=== PATIENT | female | born 1995 | race Hispanic/Latino ===

== ENCOUNTER 2020-04-06 06:00 | Inpatient (IN) | payer OTHER ==
[2020-04-06] MEDS ORDERED: Bupivacaine 0.25% HCL 30 ML VIAL ONE (11:24)
[2020-04-07] MEDS ORDERED: Diphenoxylate HCl/Atropine Tablet PO PRN (05:45)
[2020-04-07] MEDS ORDERED: Carboprost 250 MCG/ML AMP IM PRN (05:45)
[2020-04-07] MEDS ORDERED: NS / Oxytocin 40 units/1000ml 1,000 ML IV PRN (05:45)
[2020-04-07] MEDS ORDERED: HYDROcodone/Acetaminophen 5/325 mg Tablet PO PRN ×3 (05:45→15:06)
[2020-04-07] MEDS ORDERED: Lidocaine 1% (PF) 30 ML VIAL SC PRN (05:45)
[2020-04-07] MEDS ORDERED: Promethazine HCl 25 MG/ML VIAL IM PRN (05:45)
[2020-04-07] MEDS ORDERED: Methylergonovine 0.2 MG/ML VIAL IM PRN (05:45)
[2020-04-07] MEDS ORDERED: Misoprostol 200 MCG TAB PR PRN (05:45)
[2020-04-07] MEDS ORDERED: Butorphanol Tartrate 1 MG/ML VIAL SLOW IVP PRN (05:45)
[2020-04-07] MEDS ORDERED: Ondansetron PF 4 MG/2 ML Vial IVP PRN ×2 (05:45→15:06)
[2020-04-07] MEDS ORDERED: Ibuprofen 800 MG TAB PO PRN (05:45)
[2020-04-07] MEDS ORDERED: NS w/ Oxytocin 10 units 500 ML IV SCH ×2 (05:45)
[2020-04-07] MEDS ORDERED: hydrALAZINE 20 MG/ML VIAL SLOW IVP PRN ×2 (05:45→15:06)
[2020-04-07 06:12] VITALS: BMI 29.2
[2020-04-07] MEDS: Lactated Ringer's 1,000 ML IV SCH ×2 (06:30→10:43)
[2020-04-07 06:38] LABS: Hemoglobin 10.1 g/dL (12.0-16.0); Mean Corpuscular HGB CONC 32.2 g/dL (32.0-36.0); Mean Corpuscular Hemoglobin 27.5 pg (27.0-31.0); Mean Corpuscular Volume 85.5 fL (78.0-98.0); Mean Platelet Volume 9.7 fL (7.4-10.4); Platelet Count 253 thou/uL (130-400); RBC Distribution Width 13.4 % (11.5-14.5); Red Blood Cell (RBC) Count 3.69 mill/uL (4.20-5.40); White Blood Cell (WBC) Count 6.5 thou/uL (4.8-10.8)
[2020-04-07 07:21] LABS: Syphilis Antibody Nonreactive (Nonreactive); Syphilis Antibody Index 0.02 S/CO (<1.00 Non-Reactive)
[2020-04-07 07:22] LABS: HBSAg Index 0.12 S/CO (0-0.99); Hep B Surf Ag Non-Reactive S/CO (NonReactive)
[2020-04-07] MEDS ORDERED: Fentanyl 4 mcg/Bup 0.1% Cadd 100 ML ONE (09:40)
[2020-04-07] MEDS ORDERED: NS / Oxytocin 40 units/1000ml 1,000 ML ONE (12:50)
[2020-04-07] MEDS ORDERED: Lidocaine 1% (PF) 30 ML VIAL ONE (12:50)
[2020-04-07] MEDS ORDERED: Milk Of Magnesia 30 ML UDCUP PO PRN (15:06)
[2020-04-07] MEDS ORDERED: diphenhydrAMINE 25 MG CAP PO PRN (15:06)
[2020-04-07] MEDS ORDERED: NS / Oxytocin 40 units/1000ml 1,000 ML IV SCH (15:06)
[2020-04-07] MEDS ORDERED: Bisacodyl 10 MG SUPP PR PRN (15:06)
[2020-04-07] MEDS ORDERED: Preparation H Ointment 28 GM TUBE PR PRN (15:06)
[2020-04-07] MEDS ORDERED: Lanolin Ointment 7 GM TUBE TOP PRN (15:06)
[2020-04-07] MEDS: Ibuprofen 800 MG TAB PO SCH (21:21)
[2020-04-07] MEDS: Docusate Calcium (SURFAK) 240 MG CAP PO SCH (21:21)
[2020-04-08] MEDS: Ibuprofen 800 MG TAB PO SCH ×2 (04:54→14:26)
[2020-04-08] MEDS: Ferrous Sulfate 325 MG TAB PO SCH ×2 (06:26→09:05)
[2020-04-08] MEDS ORDERED: Prenatal Vitamin 1 TAB PO SCH (09:00)
[2020-04-08] MEDS: Docusate Calcium (SURFAK) 240 MG CAP PO SCH (09:05)
[2020-04-08 12:36] VITALS: BP 100/58; TEMP 98.4
[2020-04-08] MEDS ORDERED: Adacel (T-DAP) 0.5 ML SYRINGE IM ONE (15:06)
== END 2020-04-08 16:32 | disposition home or self-care (01) | DRG 807 ==
LOC: L&D-LIB 04-07 05:21 → 3SW 04-07 15:37
PROVIDERS: ADMIT Family Medicine; ATTEND Family Medicine
PROC: 10E0XZZ Delivery of Products of Conception, External Approach (ICD-10-PCS; principal; 2020-04-07)
PROC: 3E033VJ Introduction of Other Hormone into Peripheral Vein, Percutaneous Approach (ICD-10-PCS; 2020-04-07)
PROC: 10907ZC Drainage of Amniotic Fluid, Therapeutic from Products of Conception, Via Natural or Artificial Opening (ICD-10-PCS; 2020-04-07)
DX: O76 Abnormality in fetal heart rate and rhythm complicating labor and delivery (principal); Z37.0 Single live birth; Z3A.40 40 weeks gestation of pregnancy
CPT/HCPCS: 36415; 85027; 86780; 86850; 86900; 86901; 87340; J2001; J2590; S0020